=== PATIENT | female | born 1990 | race Caucasian/White ===

== ENCOUNTER 2023-10-22 04:54 | Emergency (ER) | payer OTHER ==
[~2023-10-22] VITALS: Ht 157.5 cm; Wt 93.0 kg
[2023-10-22 05:16] VITALS: TEMP 97.8
[2023-10-22 07:39] VITALS: PULSE 73; RESP 14; O2SAT 99
== END 2023-10-22 07:39 | disposition home or self-care (01) ==
LOC: FSED 04:58
DX: F45.8 Other somatoform disorders (principal); R06.02 Shortness of breath; I10 Essential (primary) hypertension; F41.9 Anxiety disorder, unspecified
CPT/HCPCS: 70450; 71046; 80053; 81003; 81025; 82553; 84484; 85025; 85379; 93005; 99284